=== PATIENT | male | born 1970 ===

== ENCOUNTER 2019-12-29 01:57 | Observation (INO) ==
[2019-12-29] MEDS ORDERED: Isovue-370 500 ML BOTTLE IVP ONE (03:04)
[2019-12-29 03:48] LABS: Basophils # 0.1 K/mcL (0.0-0.2); Basophils % 0.6 %; Eosinophils # 0.1 K/mcL (0.0-0.6); Eosinophils % 0.5 %; Hemoglobin 11.5 g/dL (12.9-16.9); Immature Granulocytes % 1.1 % (0-4); Lymphocytes # 2.9 K/mcL (0.6-4.6); Lymphocytes % 25.4 %; Mean Corpuscular HGB Conc 31.9 g/dL (31.6-35.5); Mean Corpuscular Hemoglobin 31.1 pg (28.0-33.3); Mean Corpuscular Volume 97.3 fL (83.0-100.0); Mean Platelet Volume 10.4 fL (9.4-12.4); Monocytes # 0.8 K/mcL (0.0-1.3); Monocytes % 6.7 %; Neutrophils # 7.6 K/mcL (1.6-8.9); Platelet Count 144 K/mcL (140-400); Red Cell Distribution Width 18.6 % (11.5-14.5); Segmented Neutrophils % 65.7 %; White Blood Count 11.5 K/mcL (4.3-11.1)
[2019-12-29 03:51] LABS: INR 1.1; Prothrombin Time 12.4 Seconds (9.4-12.1)
[2019-12-29 04:06] LABS: BUN/Creatinine Ratio 17 (6-26); Blood Urea Nitrogen 18 mg/dL (6-20); Calcium 7.8 mg/dL (8.6-10.3); Carbon Dioxide 25 mEq/L (23-29); Chloride 102 mEq/L (98-107); Glucose 166 mg/dL (70-105); Osmolality,Calculated 288 (280-300); Potassium 4.2 mEq/L (3.5-5.1); Sodium 136 mEq/L (136-145); eGFR For African Americans > 60 (> 60); eGFR For Non-African Americans > 60 (> 60)
[2019-12-29] MEDS ORDERED: 0.9 % Sodium Chloride 250 ML ONE ×4 (06:35→22:49)
[2019-12-29] MEDS ORDERED: Acetaminophen 325 MG TABLET PO PRN (07:43)
[2019-12-29] MEDS ORDERED: Naloxone 0.4 MG/ML INJ IVP PRN (07:43)
[2019-12-29] MEDS ORDERED: Aspirin 81 MG TAB.CHEW PO SCH (09:15)
[2019-12-29 10:12] LABS: Hematocrit 35.9 % (37.5-50.1); Hemoglobin 11.3 g/dL (12.9-16.9)
[2019-12-29] MEDS: Colchicine 0.6 MG TABLET PO SCH ×2 (10:21→21:25)
[2019-12-29] MEDS: levETIRAcetam 250 MG TABLET PO SCH ×3 (10:21→21:24)
[2019-12-29] MEDS: Aspirin Enteric Coated 81 MG Tablet PO SCH (11:29)
[2019-12-29] MEDS: *HR* Digoxin 0.25 MG TABLET PO SCH ×2 (11:29→21:25)
[2019-12-29 14:33] LABS: Hematocrit 36.2 % (37.5-50.1); Hemoglobin 11.7 g/dL (12.9-16.9)
[2019-12-29 16:38] LABS: Hematocrit 36.3 % (37.5-50.1); Hemoglobin 11.6 g/dL (12.9-16.9)
[2019-12-29] MEDS ORDERED: Furosemide 20 MG/2 ML VIAL IVP ONE (16:51)
[2019-12-29] MEDS ORDERED: 0.9 % Sodium Chloride 250 ML IVC SCH (17:00)
[2019-12-29] MEDS: Nystatin Cream 15 GM TUBE TP SCH ×2 (17:33→21:29)
[2019-12-29 21:34] LABS: Hematocrit 37.7 % (37.5-50.1); Hemoglobin 12.3 g/dL (12.9-16.9)
[2019-12-30 00:30] LABS: Hematocrit 38.7 % (37.5-50.1); Hemoglobin 12.8 g/dL (12.9-16.9)
[2019-12-30] MEDS ORDERED: *HR* SitaGLIPtin 25 MG TABLET PO SCH (01:00)
[2019-12-30 06:30] LABS: Hematocrit 39.7 % (37.5-50.1); Hemoglobin 13.1 g/dL (12.9-16.9); Mean Corpuscular Hemoglobin 31.3 pg (28.0-33.3); Mean Platelet Volume 10.8 fL (9.4-12.4); Platelet Count 136 K/mcL (140-400); Red Blood Count 4.18 M/mcL (4.19-5.50); Red Cell Distribution Width 18.7 % (11.5-14.5); White Blood Count 11.2 K/mcL (4.3-11.1)
[2019-12-30 06:51] LABS: BUN/Creatinine Ratio 16 (6-26); Blood Urea Nitrogen 15 mg/dL (6-20); Calcium 7.9 mg/dL (8.6-10.3); Carbon Dioxide 28 mEq/L (23-29); Chloride 105 mEq/L (98-107); Glucose 130 mg/dL (70-105); Osmolality,Calculated 291 (280-300); Potassium 3.8 mEq/L (3.5-5.1); Sodium 139 mEq/L (136-145); eGFR For African Americans > 60 (> 60); eGFR For Non-African Americans > 60 (> 60)
[2019-12-30] MEDS: levETIRAcetam 250 MG TABLET PO SCH ×2 (08:40→08:43)
[2019-12-30] MEDS: Colchicine 0.6 MG TABLET PO SCH (08:40)
[2019-12-30] MEDS: *HR* Digoxin 0.25 MG TABLET PO SCH (08:41)
[2019-12-30] MEDS: Aspirin Enteric Coated 81 MG Tablet PO SCH (08:42)
[2019-12-30] MEDS: Nystatin Cream 15 GM TUBE TP SCH (08:47)
[2019-12-30 10:20] VITALS: BP 108/61
[2019-12-30 10:33] LABS: Hematocrit 43.7 % (37.5-50.1); Hemoglobin 14.2 g/dL (12.9-16.9)
[2019-12-31] MEDS ORDERED: *HR* Digoxin 0.25 MG TABLET PO SCH (09:00)
== END 2019-12-30 15:17 | disposition home or self-care (01) ==
LOC: 3ANU 01:57 → EMEROOARM 01:57 → SUATTDRO 07:20 → 3ANU 08:06
PROVIDERS: ADMIT Internal Medicine; ATTEND Internal Medicine